=== PATIENT | male | born 1980 | race Caucasian/White ===

== ENCOUNTER 2023-02-12 23:39 | Emergency (ER) | payer OTHER ==
[~2023-02-12] VITALS: Ht 185.4 cm; Wt 95.3 kg
[2023-02-13 00:08] VITALS: BP 187/124; TEMP 99
[2023-02-13] MEDS ORDERED: NEOM10DR11 LEFT EAR (00:11)
[2023-02-13 00:31] VITALS: O2SAT 97
== END 2023-02-13 | disposition home or self-care (01) ==
LOC: ER 02-13 00:06
DX: H60.92 Unspecified otitis externa, left ear (principal)